=== PATIENT | female | born 2005 | race Caucasian/White ===

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

== ENCOUNTER 2023-09-01 13:45 | Inpatient (IN) | payer OTHER ==
[~2023-09-01] VITALS: Ht 160 cm; Wt 69.5 kg
[2023-09-01] VITALS (12 sets, daily range): BP systolic 81–112; BP diastolic 43–66
[~2023-09-01 13:45] MED LIST changes: +FAMO10 PO; +PRENATAL TABLE1 EAC2 PO
[2023-09-01] MEDS ORDERED: Bupivacaine HCl 2.5 MG/ML 10ML P/F Injection XX SCH (14:30)
[2023-09-01] MEDS ORDERED: Castor Oil 59.146 ML BTL TOP SCH (14:30)
[2023-09-01] MEDS ORDERED: Bupivacaine 0.5% HCl 5 MG/ML 30MLVIAL XX SCH (14:30)
[2023-09-01] MEDS ORDERED: Lactated Ringer's 1,000 ML IV PRN (14:30)
[2023-09-01] MEDS ORDERED: Misoprostol 200 MCG Tab PR SCH (14:30)
[2023-09-01] MEDS ORDERED: Lidocaine HCl 1% 30 ML SDV XX SCH (14:30)
[2023-09-01] MEDS ORDERED: OXYTOCIN/RINGER'S LACTATE 500 ML IV SCH (14:30)
[2023-09-01] MEDS ORDERED: Methylergonovine Maleate 0.2MG / ML 1ML Amp IM SCH (14:30)
[2023-09-01] MEDS ORDERED: Oxytocin 10 Unit / ML Vial IM SCH (14:30)
[2023-09-01] MEDS ORDERED: Misoprostol 25 MCG Tab VAG ONE (14:35)
[2023-09-01 15:04] LABS: BASOPHILS ABSOLUTE AUTO 0.03 K/mm3 (0.00-0.23); BASOPHILS PERCENT AUTO 0 % (0-2); EOSINOPHILS ABSOLUTE AUTO 0.11 K/mm3 (0.00-0.68); EOSINOPHILS PERCENT AUTO 2 % (0-6); Hematocrit 34.3 % (33.0-51.0); Hemoglobin 11.8 g/dL (11.5-16.0); IMMATURE GRAN ABSOLUTE AUTO 0.04 K/mm3 (0.00-0.10); IMMATURE GRAN PERCENT AUTO 1 % (0-1); LYMPHOCYTES ABSOLUTE AUTO 1.99 K/mm3 (0.84-5.20); LYMPHOCYTES PERCENT AUTO 29 % (21-46); MONOCYTES ABSOLUTE AUTO 0.95 K/mm3 (0.16-1.47); MONOCYTES PERCENT AUTO 14 % (4-13); Mean Corpuscular HGB 30.7 pg (26.0-34.0); Mean Corpuscular HGB Conc 34.4 g/dL (31.5-36.5); Mean Corpuscular Volume 89 fL (80-100); NEUTROPHILS ABSOLUTE AUTO 3.64 K/mm3 (1.96-9.15); NEUTROPHILS PERCENT AUTO 54 % (41-73); Platelet Count 267 K/mm3 (150-400); RDW Coefficient Variation 12.4 % (11.7-14.2); Red Blood Cell Count 3.84 M/mm3 (3.80-5.20); White Blood Cell Count 6.76 K/mm3 (4.00-11.30)
[2023-09-01] MEDS ORDERED: Misoprostol 25 MCG Tab VAG SCH (16:00)
[2023-09-01] MEDS ORDERED: Acetaminophen 325 MG TABLET PO PRN (18:05)
[2023-09-01] MEDS ORDERED: FentaNYL 2mcg/ml-Bup 0.1% Epd 250 ML EPI PRN (18:35)
[2023-09-01] MEDS ORDERED: FentaNYL Citrate 50 MCG/ML 2 ML Injection IV PRN (18:35)
[2023-09-01] MEDS ORDERED: Lactated Ringer's 1,000 ML IV SCH ×2 (18:35)
[2023-09-01] MEDS ORDERED: ePHEDrine Sulfate 50 MG/ML 1ML Injection XX PRN (18:35)
[2023-09-01] MEDS ORDERED: Zolpidem Tartrate 10 MG Tab PO PRN (19:25)
[2023-09-01] MEDS ORDERED: Misoprostol 100 MCG Tab VAG SCH (20:00)
[2023-09-01] MEDS ORDERED: Misoprostol 200 MCG Tab VAG SCH (23:00)
[2023-09-02] VITALS (16 sets, daily range): BP systolic 77–123; BP diastolic 47–76
[2023-09-02] MEDS ORDERED: OXYTOCIN/RINGER'S LACTATE 500 ML IV SCH (08:25)
[2023-09-02] MEDS ORDERED: Ketorolac Tromethamine 30mg Vial IV ONE (09:00)
[2023-09-02] MEDS ORDERED: CeFAZolin Sodium 2,000 MG in NS 100 ML IV ONE (10:35)
[2023-09-02 16:56] LABS: CMV ANTIBODY IGM <8.0 AU/mL (<=29.9)
[2023-09-02 17:25] LABS: HSV 1 GLYCOPROTEIN G AB, IGG 0.12 IV (<=0.89); HSV 2 GLYCOPROTEIN G AB, IGG 0.04 IV (<=0.89)
[2023-09-02 17:47] LABS: FETAL HGB - PERCENT FETAL RBCS 0.014 % (0.000-0.124)
[2023-09-02 19:59] LABS: TOXOPLASMA GONDII AB, IGG <3.0 IU/mL (<=8.8); TOXOPLASMA GONDII AB, IGM <3.0 AU/mL (<=7.9)
[2023-09-02 20:08] LABS: B2GLYCOPROTEIN 1, IGG ANTIBODY <10 SGU (<=20); B2GLYCOPROTEIN 1, IGM ANTIBODY <10 SMU (<=20)
[2023-09-02] MEDS ORDERED: Misoprostol 200 MCG Tab ONE (21:33)
[2023-09-02] MEDS ORDERED: Misoprostol 200 MCG Tab VAG SCH (22:15)
[2023-09-03 02:27] LABS: VARICELLA-ZOSTER VIRUS AB,IGG 100.3 IV; VARICELLA-ZOSTER VIRUS AB,IGM 0.26 ISR (<=0.90)
[2023-09-03 03:16] VITALS: BP 98/57
[2023-09-03 07:48] VITALS: BP 102/60
--- NOTE | 2023-09-03 08:08 | NUR ---
Dr. Simmons at bedside. Bedside ultrasound performed to assess for retained placental parts. Possible small part remains retained, but Dr. Simmons does not feel that pt needs to go for D&C at this time. Bleeding and clotting precautions reviewed with pt and SO. Verbalized understanding. Would like to discharge home mary. parts
--- NOTE | 2023-09-03 08:15 | NUR ---
Spoke with Siena King regarding pt and SO questions about cremation. Will call back when pt d/c'd to molded goods spot picker baby.
[2023-09-03] MEDS ORDERED: IBUP800 PO (08:55)
--- NOTE | 2023-09-03 10:10 | NUR ---
Pt d/c'd home ambulatory, will apple picker box of keepsakes when she returns for follow up or will call if needed. Verbalized understanding of d/c instructions, follow up and precautions. Christine notified that nb ready to be picked up when available.
[2023-09-03 19:44] LABS: ANTI-XA QUALITATIVE INTERP Not Performed (Not Present); ANTICOAG MEDICATION NEUTRALIZ Not Performed (Not Performed); DRVVT 1:1 MIX RATIO Not Performed (<=1.20); DRVVT CONFIRMATION RATIO Not Performed (<=1.20); DRVVT SCREEN RATIO 0.78 (<=1.20); HEXAGONAL PHOSPHOLIPID CONFIRM Not Performed s (<=7.9); NEUTRALIZED DRVVT SCREEN RATIO Not Performed (<=1.20); NEUTRALIZED PTT-LA RATIO Not Performed (<=1.20); PROTHROMBIN TIME (PT) 12.7 s (12.0-15.5); PTT-LA RATIO 0.93 (<=1.20); THROMBIN TIME (TT) Not Performed s (<=19.5)
[2023-09-07 10:18] LABS: FACTOR V LEIDEN F5 R506Q MUTAT Negative; FACV SPECIMEN Whole Blood
== END 2023-09-03 10:05 | disposition home or self-care (01) | DRG 807 ==
LOC: OBS 13:45 → BC 13:45 → OBS 14:00 → BC 14:03 → OBS 14:03 → BC 14:38
PROVIDERS: ADMIT Advanced Practice Midwife
PROC: 10E0XZZ Delivery of Products of Conception, External Approach (ICD-10-PCS; principal; 2023-09-01)
PROC: 10907ZC Drainage of Amniotic Fluid, Therapeutic from Products of Conception, Via Natural or Artificial Opening (ICD-10-PCS; 2023-09-01)
PROC: 3E0DXGC Introduction of Other Therapeutic Substance into Mouth and Pharynx, External Approach (ICD-10-PCS; 2023-09-01)
DX: O36.4XX0 Maternal care for intrauterine death, not applicable or unspecified (principal); Z37.1 Single stillbirth; Z3A.27 27 weeks gestation of pregnancy; Z88.8 Allergy status to other drugs, medicaments and biological substances
CPT/HCPCS: 36415; 81241; 85025; 85610; 85613; 85730; 86146; 86356; 86644; 86645; 86695; 86696; 86777; 86778; 86787; 86850; 86900; 86901; 86923; 88307; A9270; J0690; J1885; J2590; J3010